=== PATIENT | female | born 1955 | race Caucasian/White ===

== ENCOUNTER → 2016-06-24 | Outpatient (CLI) | payer OTHER ==
[~2016-06-24] MED LIST: ACTOS30 MG PO; AMANTADINE100 MG PO; ARTANE2 MG PO; BACLOFEN10 MG PO; CYMBALTA60 MG PO; GLIMEPIRIDE2 MG PO; HORIZANT PO; LEVOTHYROXINE0.1 MG PO; LIPITOR10 MG PO; LISINOPRIL20 MG PO; METFORMIN HCL850 MG PO; MOTRIN800 MG PO; NAPROSYN500 MG PO; PERCOCET 325 MG1 TA2 PO; PREMPRO 0.625 M1 TA1 PO; REQUIP4 MG; VICODIN 500 MG-1 TAB PO; VICODIN ES 7501 TAB PO; VITAMIN B 12 PO; VITAMIN B121000 MC2 PO; VITAMIN D1000 IU PO; VITAMIN D2000 IU; XANAX0.5 MG PO; [UNRECOGNIZED DRUG - OTHER] PO
[2016-06-24 11:07] LABS: FOLIC ACID 20.82 ng/mL (>5.38)
== END | disposition home or self-care (01) ==
LOC: LAB 09:36
PROVIDERS: Nurse Practitioner
DX: M79.1 Myalgia (principal)

== ENCOUNTER → 2016-07-01 | Outpatient (CLI) | payer OTHER ==
[2016-07-01 08:58] LABS: BASO # 0.1 10*3/uL (0.0-0.1); BASO % 0.7 % (0.0-1.0); EOS # 0.4 10*3/uL (0.0-0.4); EOS % 5.1 % (1.0-4.0); HEMATOCRIT 38.5 % (37.0-47.0); HEMOGLOBIN 12.3 g/dl (12.0-16.0); LYMPH # 2.2 10*3/uL (1.3-4.4); LYMPH % 25.9 % (27.0-41.0); MEAN CELL VOLUME 83.7 fl (81.0-99.0); MEAN CORPUSCULAR HGB 26.7 pg (27.0-31.0); MEAN CORPUSCULAR HGB CONC 31.9 g/dl (33.0-37.0); MEAN PLATELET VOLUME 10.5 fl (9.6-12.3); MONO # 0.5 10*3/uL (0.1-1.0); MONO % 5.4 % (3.0-9.0); NEUT # 5.4 10*3/uL (2.3-7.9); NEUT % 62.6 % (47.0-73.0); PLATELET COUNT AUTOMATED 327 10*3/uL (130-400); RED CELL DISTRI WIDTH 15.6 % (0-14.5); WHITE BLOOD COUNT 8.6 10*3/uL (4.8-10.8)
[2016-07-01 09:12] LABS: HEMOGLOBIN A1c 10.2 % (4.8-5.6)
[2016-07-01 09:23] LABS: ALBUMIN 3.6 gm/dl (3.1-4.5); ALKALINE PHOSPHATASE 107 U/L (45-117); BILIRUBIN, DIRECT < 0.1 mg/dL (0.0-0.2); BILIRUBIN, TOTAL 0.6 mg/dl (0.2-1.0); CHOLESTEROL 213 mg/dL (<200); HDL CHOLESTEROL 62 mg/dl (40-60); LDL CHOLESTEROL 117 mg/dL (9-159); SGOT/AST 6 IU/L (3-35); TRIGLYCERIDES 168 mg/dl (<150); VLDL CHOLESTEROL 34 mg/dL (6-40)
[2016-07-01 10:13] LABS: SGPT/ALT < 6 U/L (12-78)
[2016-07-01 10:16] LABS: FOLIC ACID > 24.00 ng/mL (>5.38)
== END | disposition home or self-care (01) ==
LOC: LAB 08:15
PROVIDERS: Internal Medicine
DX: E11.65 Type 2 diabetes mellitus with hyperglycemia (principal); I10 Essential (primary) hypertension; G25.0 Essential tremor

== ENCOUNTER 2016-11-20 12:33 | Emergency (ER) | payer OTHER ==
[~2016-11-20] VITALS: Wt 103.0 kg
== END 2016-11-20 14:52 | disposition home or self-care (01) ==
LOC: ED 12:33
DX: S93.402A Sprain of unspecified ligament of left ankle, initial encounter (principal); S93.602A Unspecified sprain of left foot, initial encounter; S90.32XA Contusion of left foot, initial encounter; Z98.51 Tubal ligation status; Z90.49 Acquired absence of other specified parts of digestive tract; Z79.899 Other long term (current) drug therapy; Z88.2 Allergy status to sulfonamides; W05.0XXA Fall from non-moving wheelchair, initial encounter; Y93.89 Activity, other specified; Y92.89 Other specified places as the place of occurrence of the external cause; Y99.9 Unspecified external cause status